=== PATIENT | male | born 1990 | race American Indian/Alaskan Native ===

== ENCOUNTER 2018-01-08 22:10 | Emergency (ER) | payer SELFPAY ==
[2018-01-08 22:58] VITALS: BP 149/80
--- NOTE | 2018-01-08 23:23 | Emergency Department Report ---
HPI - General Chief Complaint: Psych Time Seen by Provider: 01/08/18 23:20 - HPI HPI: 28-year-old Afro-[place] male presents to the emergency department with his parents for a mental health evaluation. The patient says that he is currently homeless as he is no longer able to stay with his parents due to his recent behavior. He has been wandering the streets and even self proclaimed to be trespassing sometimes. Mom says that there was an episode about a week or so ago where he became very aggressive towards her and they called the police. The patient was arrested and they said that he was diagnosed with bipolar disorder and schizophrenia while in [facility]. However he was discharged from there. Today, the patient was wandering around when he ran into his brother who convinced him to come with his parents to the hospital for an evaluation. Patient admits that he does not sleep much. He is slightly manic in appearance and anxious. However the patient is awake, oriented, a O 3, and currently acting calm and appropriate. He denies any suicidal or homicidal ideations, and denies any auditory or visual hallucinations. ED Past Medical Hx - Past Medical History Previous Medical History?: Yes Additional medical history: mental health issues - Surgical History Past Surgical History?: No - Social History Smoking Status: Never Smoker Substance Use Type: Alcohol, Marijuana ED Review of Systems ROS: Stated complaint: MENTALLY UNSTABLE, MANIC ETC Other details as noted in HPI Comment: All other systems reviewed and negative Constitutional: denies: chills, fever Eyes: denies: eye pain, eye discharge, vision change ENT: denies: ear pain, throat pain Respiratory: denies: cough, shortness of breath, wheezing Cardiovascular: denies: chest pain, palpitations Gastrointestinal: denies: abdominal pain, nausea, diarrhea Genitourinary: denies: urgency, dysuria Musculoskeletal: denies: back pain, joint swelling, arthralgia Skin: denies: rash, lesions Neurological: denies: headache, weakness, paresthesias Psychiatric: denies: auditory hallucinations, visual hallucinations, homicidal thoughts, suicidal thoughts Physical Exam - Physical Exam Vital Signs: Vital Signs 01/08/18 22:54 Temperature 98.6 F Pulse Rate 124 H Respiratory 16 Rate Blood Pressure 149/80 O2 Sat by Pulse 99 Oximetry Physical Exam: GENERAL: The patient is well-developed well-nourished. HEENT: Normocephalic. Atraumatic. Patient has moist mucous membranes. EYES: Extraocular motions are intact. NECK: Supple. Trachea is midline. CHEST/LUNGS: Clear to auscultation. There is no respiratory distress noted. HEART/CARDIOVASCULAR: Regular. There is mild tachycardia. There is no gallop rub or murmur. ABDOMEN: Abdomen is soft, nontender. Patient has normal bowel sounds. There is no abdominal distention. SKIN: Skin is warm and dry. NEURO: The patient is awake, alert, and oriented. The patient has no focal neurologic deficits. No slurred speech. MUSCULOSKELETAL: There is no tenderness or deformity. There is no limitation range of motion. There is no evidence of acute injury. PSYCH: The patient appears slightly manic. No signs of any response to internal stimuli. Patient makes good eye contact. ED Course Vital Signs 01/08/18 22:54 Temperature 98.6 F Pulse Rate 124 H Respiratory 16 Rate Blood Pressure 149/80 O2 Sat by Pulse 99 Oximetry ED Medical Decision Making - Medical Decision Making This patient was brought in by his family hoping that he would be willing to go for inpatient psychiatric treatment, either voluntarily or involuntarily. The patient recently was allegedly diagnosed with bipolar disorder and/or schizophrenia while he was in [facility] after there was some incident at home about a week ago. His parents are concerned about his behavior which they say is sometimes erratic. The patient is currently not living with them, and he says he is homeless, secondary to his behavior at their house. I do feel that the patient may be displaying some shiva as he says that he has not been sleeping much, is wandering around the city. However, the patient is awake, alert, oriented to person/place/time. He answers questions appropriately. He denies any suicidal or homicidal ideations. He denies any visual or auditory hallucinations. The patient does appear to want some type of psychiatric evaluation but he is not willing to stay overnight in the emergency department to see anyone from the psychiatric team. He does not appear as if he will be compliant with outpatient referral and follow-up in his family thinks he will not do that. However, in evaluation of the patient regarding being a 1013, I do not think that he currently fits criteria to be made a 1013 or for involuntary inpatient psychiatric treatment. He denies suicidal or homicidal ideations. He denies any hallucinations. Despite appearing slightly anxious and manic, based on his current behavior, I do not feel that the patient would be unable to take care of himself appropriately and complete his ADLs. If the patient was displaced some of the behavior that his parents talked about from a week ago, it might be a different story. The patient says that he would be willing to return to the emergency department tomorrow for a psychiatric evaluation. I tried to explain that he is more than welcome to return to the emergency department for an evaluation but I cannot guarantee a scheduled appointment with either the nurse practitioner, SHANELL or the psychiatrist himself. Once the patient realized that he was free to go, he was not willing to wait for any discharge paperwork or outpatient referrals. He understands that he is free to return at any time for further evaluation. - Differential Diagnosis bipolar disorder, schizophrenia, substance abuse, depression, anxiety Critical Care Time: No Critical care attestation.: If time is entered above; I have spent that time in minutes in the direct care of this critically ill patient, excluding procedure time. ED Disposition Clinical Impression: Manic behavior Disposition: DC-07 LEFT AGAINST MED ADVICE Is pt being admited?: No Condition: Stable Referrals: PRIMARY CARE, [Primary Care Provider] - 3-5 Days Time of Disposition: 00:33
[2018-01-08 23:30] LABS: Bilirubin,Urine NEG (Negative); Blood,Urine NEG (Negative); Color,Urine Amber (Yellow); Hyaline Casts,Urine 3 /LPF; Mucus,Urine 3+ /HPF
[2018-01-08 23:35] LABS: Amphetamine Screen,Urine PRESUMPTIVE NEGATIVE; Benzodiazepines Screen,Urine PRESUMPTIVE NEGATIVE; Cocaine Screen,Urine PRESUMPTIVE NEGATIVE; Methadone Screen,Urine PRESUMPTIVE NEGATIVE; Opiate Screen,Urine PRESUMPTIVE NEGATIVE
[2018-01-09 00:49] LABS: Cannabinoid Screen,Urine PRESUMPTIVE POSITIVE
== END 2018-01-08 23:30 | disposition left against medical advice (07) ==
LOC: ED 22:10
DX: F31.9 Bipolar disorder, unspecified (principal); F20.9 Schizophrenia, unspecified; F12.10 Cannabis abuse, uncomplicated; Z59.0 Homelessness
CPT/HCPCS: 80307; 81001; 99283